=== PATIENT | female | born 1970 | race Caucasian/White ===

== ENCOUNTER 2017-02-28 02:53 | Emergency (ER) | payer OTHER ==
[~2017-02-28] VITALS: Ht 157.5 cm; Wt 81.5 kg
[2017-02-28 03:25] LABS: BASOPHILS # (AUTO) 0.05 K/uL (0.00-0.20); BASOPHILS % (AUTO) 0.3 % (0.0-2.0); EOSINOPHILS # (AUTO) 0.17 K/uL (0.00-0.70); EOSINOPHILS % (AUTO) 1.23 % (1.0-6.0); HEMATOCRIT 43.6 % (36-46); HEMOGLOBIN 14.4 g/dL (12.0-16.0); LYMPHOCYTES # (AUTO) 3.1 K/uL (1.0-4.8); LYMPHOCYTES % (AUTO) 21.5 % (22.0-44.0); MEAN CORPUSCULAR HEMOGLOBIN 28.9 pg (26.0-34.0); MEAN CORPUSCULAR VOLUME 87 fL (80-100); MONOCYTES # (AUTO) 0.7 K/uL (0.1-1.0); MONOCYTES % (AUTO) 4.8 % (2.0-9.0); NEUTROPHILS # (AUTO) 10.2 K/uL (1.8-7.7); NEUTROPHILS % (AUTO) 72.1 % (40.0-70.0); PLATELET COUNT (AUTO) 320 K/uL (150-450); RED BLOOD CELL COUNT(AUTO) 4.99 MIL/uL (4.00-5.20); RED CELL DISTRIBUTION WIDTH 14.5 % (11.5-14.5); WHITE BLOOD COUNT (AUTO) 14.2 K/uL (4.5-11.0)
[2017-02-28 03:47] LABS: ADD UA MICROSCOPIC YES; APPEARANCE,URINE CLEAR (CLEAR); GLUCOSE, URINE (UA) NEGATIVE (NEGATIVE); KETONES,URINE TRACE mg/dL (NEGATIVE); LEUKOCYTE ESTERASE ,URINE SMALL (NEGATIVE); OCCULT BLOOD,URINE TRACE (NEGATIVE); PH,URINE 5.5 (5.0-8.0); PROTEIN,URINE TRACE (NEGATIVE)
[2017-02-28 04:01] LABS: SQUAMOUS EPITHELIAL CELL,UR Few /LPF (None Seen)
[2017-02-28 04:41] LABS: ANION GAP 11 mmol/L (8-16); CALCIUM, TOTAL 8.7 mg/dL (8.8-10.5); CARBON DIOXIDE 27 mmol/L (22-29); CHLORIDE 104 mmol/L (98-107); CREATININE 0.77 mg/dL (0.60-1.30); GLOMERULAR FILTR. RATE CALC > 60 mL/min (>60); POTASSIUM 4.2 mmol/L (3.5-5.1); SODIUM SERUM 142 mmol/L (136-145); UREA NITROGEN, BLOOD 11 mg/dL (7-18)
[2017-02-28 04:47] LABS: ALANINE AMINOTRANSFERASE 20 U/L (12-78); ALBUMIN 3.8 g/dL (3.4-5.0); ASPARTATE AMINOTRANSFERASE 18 U/L (15-37); BILIRUBIN,TOTAL 0.3 mg/dL (0.1-1.0); TOTAL PROTEIN, SERUM 8.3 g/dL (6.4-8.2)
[2017-02-28 06:14] VITALS: BP 136/89
== END 2017-02-28 06:15 | disposition home or self-care (01) ==
LOC: EMS 02:54
DX: M54.5 Low back pain (principal); R31.29 Other microscopic hematuria; J44.9 Chronic obstructive pulmonary disease, unspecified; F17.210 Nicotine dependence, cigarettes, uncomplicated
CPT/HCPCS: 74176; 99285

== ENCOUNTER 2017-05-10 00:30 | Emergency (ER) | payer OTHER ==
[~2017-05-10] VITALS: Ht 157.5 cm; Wt 109.1 kg
[2017-05-10 02:36] VITALS: BP 139/77
[2017-05-10] MEDS ORDERED: ACYCLOVIR 200 MG CAPSULE PO ONE (02:45)
[2017-05-10] MEDS ORDERED: PredniSONE 20 MG TABLET PO ONE (02:45)
== END 2017-05-10 03:09 | disposition home or self-care (01) ==
LOC: EMS 00:39
DX: B02.9 Zoster without complications (principal); J44.9 Chronic obstructive pulmonary disease, unspecified; F17.210 Nicotine dependence, cigarettes, uncomplicated
CPT/HCPCS: 99283; J7512

== ENCOUNTER 2017-06-28 01:12 | Emergency (ER) | payer OTHER ==
[~2017-06-28] VITALS: Ht 154.9 cm; Wt 109.1 kg
[2017-06-28 01:28] LABS: GLUCOSE,POINT OF CARE 105 MG/DL (70-110)
[2017-06-28] MEDS: IBUPROFEN 600 MG TABLET PO ONE (03:15)
[2017-06-28 03:16] VITALS: BP 134/85
[2017-06-28] MEDS: HYDROCODONE/ACETAMINOPHEN 5-325 MG TABLET PO ONE (03:16)
== END 2017-06-28 03:20 | disposition home or self-care (01) ==
LOC: EMS 01:12
DX: J02.9 Acute pharyngitis, unspecified (principal); J44.9 Chronic obstructive pulmonary disease, unspecified; F17.210 Nicotine dependence, cigarettes, uncomplicated
CPT/HCPCS: 82962; 99283; 99406

== ENCOUNTER 2020-11-15 18:33 | Emergency (ER) | payer OTHER ==
[~2020-11-15] VITALS: Ht 154.9 cm; Wt 109.1 kg
[2020-11-15] MEDS ORDERED: FLUORESCEIN SODIUM 1 MG STRIP ONE (19:15)
[2020-11-15] MEDS ORDERED: PROPARACAINE HCL 0.5% 15 ML OPHTHALMIC SOLUTION OD ONE (19:15)
[2020-11-15 20:01] VITALS: BP 132/72
== END 2020-11-15 20:03 | disposition home or self-care (01) ==
LOC: EMS 18:39
DX: B02.9 Zoster without complications (principal); J44.9 Chronic obstructive pulmonary disease, unspecified; F17.210 Nicotine dependence, cigarettes, uncomplicated; F12.90 Cannabis use, unspecified, uncomplicated
CPT/HCPCS: 99283

== ENCOUNTER 2020-12-02 17:53 | Emergency (ER) | payer OTHER ==
[~2020-12-02] VITALS: Ht 160 cm; Wt 100.0 kg
[2020-12-02] MEDS ORDERED: KETOROLAC TROMETHAMINE 30 MG/ML VIAL IM ONE (18:45)
[2020-12-02 19:28] VITALS: BP 118/79
== END 2020-12-02 20:10 | disposition left against medical advice (07) ==
LOC: EMS 17:59
DX: M54.2 Cervicalgia (principal); M25.521 Pain in right elbow; M25.561 Pain in right knee; M25.562 Pain in left knee; J44.9 Chronic obstructive pulmonary disease, unspecified; F17.210 Nicotine dependence, cigarettes, uncomplicated; F12.90 Cannabis use, unspecified, uncomplicated; V43.62XA Car passenger injured in collision with other type car in traffic accident, initial encounter; Y93.89 Activity, other specified; Y92.488 Other paved roadways as the place of occurrence of the external cause; Y99.8 Other external cause status
CPT/HCPCS: 72040; 73080; 73562; 96372; 99284; J1885

== ENCOUNTER 2021-02-18 21:14 | Emergency (ER) | payer OTHER ==
[~2021-02-18] VITALS: Ht 157.5 cm; Wt 109.1 kg
[2021-02-18 22:15] VITALS: BP 142/90
[2021-02-18] MEDS ORDERED: AMOX TR/POT CLAV 875 MG/125 MG TABLET PO ONE (22:15)
[2021-02-18] MEDS ORDERED: ACETAMINOPHEN 325 MG TABLET PO ONE (22:15)
== END 2021-02-18 21:45 | disposition home or self-care (01) ==
LOC: EMS 21:23
DX: L03.113 Cellulitis of right upper limb (principal); J44.9 Chronic obstructive pulmonary disease, unspecified; F12.90 Cannabis use, unspecified, uncomplicated; F17.210 Nicotine dependence, cigarettes, uncomplicated
CPT/HCPCS: 99283

== ENCOUNTER 2022-06-04 18:07 | Emergency (ER) | payer OTHER ==
[~2022-06-04] VITALS: Ht 154.9 cm; Wt 109.1 kg
[2022-06-04 21:00] VITALS: BP 135/65
== END 2022-06-05 00:05 | disposition home or self-care (01) ==
LOC: EMS 18:07
DX: R51.9 Headache, unspecified (principal); J44.9 Chronic obstructive pulmonary disease, unspecified; F17.210 Nicotine dependence, cigarettes, uncomplicated; F12.90 Cannabis use, unspecified, uncomplicated; F10.90 Alcohol use, unspecified, uncomplicated; Z98.51 Tubal ligation status; Z98.890 Other specified postprocedural states
CPT/HCPCS: 70450; 99284

== ENCOUNTER 2022-11-02 | Emergency (ER) | payer OTHER ==
[~2022-11-02] VITALS: Ht 154.9 cm; Wt 109.1 kg
[2022-11-02 00:16] VITALS: BP 127/69
[2022-11-02] MEDS ORDERED: LIDOCAINE/PF 1% 2 ML VIAL IM ONE (02:30)
[2022-11-02] MEDS ORDERED: DOXYCYCLINE HYCLATE 100 MG TABLET PO ONE (02:30)
[2022-11-02] MEDS ORDERED: CefTRIAXone SODIUM 1 GM/VIAL IM ONE (02:30)
[2022-11-02] MEDS ORDERED: GENTAMICIN SULFATE 0.3% OPHTHALMIC SOLUTION 5 ML OD ONE (02:30)
== END 2022-11-02 02:57 | disposition home or self-care (01) ==
LOC: EMS 00:01
DX: H05.011 Cellulitis of right orbit (principal); H10.9 Unspecified conjunctivitis; B02.9 Zoster without complications; J44.9 Chronic obstructive pulmonary disease, unspecified; F17.210 Nicotine dependence, cigarettes, uncomplicated; F12.90 Cannabis use, unspecified, uncomplicated
CPT/HCPCS: 99283; 96372; J0696; J3490

== ENCOUNTER 2024-10-16 16:22 | Inpatient (IN) | payer OTHER ==
[~2024-10-16] VITALS: Ht 157.5 cm; Wt 113.0 kg
[2024-10-16] VITALS (8 sets, daily range): BP systolic 101–143; BP diastolic 42–90; PULSE 80–99; RESP 18–21; TEMP 98–98.7
[2024-10-16 16:55] LABS: MEAN CORPUSCULAR HEMOGLOBIN 15.6 pg (26.0-34.0); MEAN CORPUSCULAR HGB CONC 27.5 G/dL (31.0-37.0); MEAN CORPUSCULAR VOLUME 57 fL (80-100); PLATELET COUNT (AUTO) 453 K/uL (150-450); RED CELL DISTRIBUTION WIDTH 23.2 % (11.5-14.5); WHITE BLOOD COUNT (AUTO) 8.5 K/uL (4.5-11.0)
[2024-10-16 17:04] LABS: ANION GAP 9 mmol/L (8-16); CALCIUM, TOTAL 8.1 mg/dL (8.8-10.5); CARBON DIOXIDE 28 mmol/L (22-29); CHLORIDE 105 mmol/L (98-107); CREATININE 0.76 mg/dL (0.60-1.30); GLOMERULAR FILTR. RATE CALC > 60 mL/min (>60); GLUCOSE,RANDOM 97 mg/dL (70-110); POTASSIUM 3.8 mmol/L (3.5-5.1); SODIUM SERUM 142 mmol/L (136-145); UREA NITROGEN, BLOOD 8 mg/dL (7-18)
[2024-10-16 17:11] LABS: HEMATOCRIT 20.9 % (36-46); HEMOGLOBIN 5.8 g/dL (12.0-16.0)
[2024-10-16 17:40] LABS: BAND NEUTROPHILS % (MANUAL) 3 % (0-5); LYMPHOCYTES % (MANUAL) 25 % (22-44); MONOCYTES % (MANUAL) 7 % (2-9); SEGMENTED NEUTROPHILS % 65 % (40-70); TOTAL CELLS COUNTED 100
[2024-10-16 17:42] LABS: RBC MORPHOLOGY COMMENT ABNORMAL R
[2024-10-16 17:54] LABS: PROTHROMBIN TIME 10.8 SEC (9.4-11.6)
[2024-10-16] MEDS ORDERED: IOHEXOL 350 MG/ML 100 ML VIAL ONE (18:23)
[2024-10-16] MEDS ORDERED: 0.9% SODIUM CHLORIDE 10 ML SYRINGE IVP ONE (18:23)
[2024-10-16] MEDS ORDERED: SODIUM CHLORIDE 0.9% 100 ML ONE (18:23)
[2024-10-16 18:43] LABS: ALBUMIN 2.9 g/dL (3.4-5.0); BILIRUBIN,DIRECT 0.1 mg/dL (0.00-0.20); BILIRUBIN,TOTAL 0.3 mg/dL (0.1-1.0); TOTAL PROTEIN, SERUM 6.6 g/dL (6.4-8.2)
[2024-10-16] MEDS ORDERED: MAGNESIUM HYDROXIDE SUSPENSION 30 ML UDCUP PO PRN (22:15)
[2024-10-16] MEDS ORDERED: IPRATROPIUM BROMIDE 0.5 MG/2.5 ML NEB SOLUTION NEB PRN (22:15)
[2024-10-16] MEDS ORDERED: ACETAMINOPHEN 325 MG TABLET PO PRN (22:15)
[2024-10-16] MEDS ORDERED: ONDANSETRON HCL 4 MG/2 ML VIAL IVP PRN (22:15)
[2024-10-16] MEDS ORDERED: BISACODYL 10 MG RECTAL RECTAL SUPPOSITORY PR PRN (22:15)
[2024-10-16] MEDS ORDERED: MORPHINE SULFATE 2 MG/ML SYRINGE IVP PRN (22:15)
[2024-10-16] MEDS ORDERED: HYDROCODONE/ACETAMINOPHEN 5-325 MG TABLET PO PRN (22:15)
[2024-10-16] MEDS ORDERED: ALBUTEROL SULFATE 2.5 MG/0.5 ML NEB SOLUTION NEB PRN (22:15)
[2024-10-16] MEDS ORDERED: ZOLPIDEM TARTRATE 5 MG TABLET PO PRN (22:15)
[2024-10-17] VITALS (15 sets, daily range): BP systolic 111–141; BP diastolic 50–71; PULSE 72–91; RESP 16–20; TEMP 97.9–98.6; O2SAT 98–100
[2024-10-17] MEDS ORDERED: SODIUM CHLORIDE 0.9% 500 ML IV ONE (00:21)
[2024-10-17] MEDS: DEXTROSE 5%-0.45% SODIUM CHL 1,000 ML IV SCH (04:56)
[2024-10-17 07:47] LABS: HEMATOCRIT 26.8 % (36-46); HEMOGLOBIN 8.2 g/dL (12.0-16.0)
[2024-10-17] MEDS: PANTOPRAZOLE SODIUM 40 MG/VIAL IVP SCH (08:37)
[2024-10-17] MEDS: PEG 3350/NA SULF,BICARB,CL/KCL 4000 ML SOLUTION PO ONE (15:11)
[2024-10-18 00:03] VITALS: BP 117/53; PULSE 83; RESP 20; TEMP 98.6; O2SAT 98
[2024-10-18 04:25] VITALS: BP 119/54; PULSE 90; RESP 18; TEMP 99.5; O2SAT 98
[2024-10-18] MEDS ORDERED: SODIUM CHLORIDE 0.9% 1,000 ML ONE (06:05)
[2024-10-18] MEDS ORDERED: PROPOFOL 1% 20 ML VIAL IVP ONE (06:53)
[2024-10-18] MEDS ORDERED: NALOXONE HCL 0.4 MG/ML VIAL ONE (06:59)
[2024-10-18] MEDS ORDERED: ATROPINE SULFATE 0.1 MG/ML 10 ML SYRINGE IVP ONE (06:59)
[2024-10-18] MEDS ORDERED: DiphenhydrAMINE HCL 50 MG/ML VIAL ONE (06:59)
[2024-10-18] MEDS ORDERED: EPINEPHrine 1:10,000 [1 MG/10 ML] SYRINGE ONE (06:59)
[2024-10-18] MEDS ORDERED: FLUMAZENIL 0.1 MG/ML 5 ML VIAL IVP ONE (06:59)
[2024-10-18] MEDS ORDERED: SODIUM TETRADECYL SULFATE 3% 60 MG/2 ML VIAL IVP ONE (06:59)
[2024-10-18] MEDS ORDERED: FentaNYL CITRATE PF 100 MCG/2 ML VIAL ONE (07:00)
[2024-10-18] MEDS ORDERED: MIDAZOLAM HCL 2 MG/2 ML VIAL ONE (07:00)
[2024-10-18 07:52] VITALS: BP 138/62; PULSE 83; RESP 18; TEMP 98.8; O2SAT 100
[2024-10-18] MEDS: HYDROCORTISONE 2.5% 30 GM CREAM TP SCH (08:47)
[2024-10-18 11:24] VITALS: BP 114/69; PULSE 83; RESP 18; TEMP 98.6; O2SAT 96
[2024-10-18] MEDS ORDERED: HYDR25SU38 PR (12:21)
== END 2024-10-18 14:40 | disposition home or self-care (01) | DRG 244 ==
LOC: EMS 16:22 → EDH 22:02 → 5S 23:13
PROVIDERS: ADMIT Hospitalist; ATTEND Hospitalist
PROC: 30233N1 Transfusion of Nonautologous Red Blood Cells into Peripheral Vein, Percutaneous Approach (ICD-10-PCS; 2024-10-16)
PROC: 0DJD8ZZ Inspection of Lower Intestinal Tract, Via Natural or Artificial Opening Endoscopic (ICD-10-PCS; principal; 2024-10-18 07:00)
DX: K57.31 Diverticulosis of large intestine without perforation or abscess with bleeding (principal); E46 Unspecified protein-calorie malnutrition; D50.0 Iron deficiency anemia secondary to blood loss (chronic); E66.9 Obesity, unspecified; F17.210 Nicotine dependence, cigarettes, uncomplicated; K64.1 Second degree hemorrhoids; Z68.42 Body mass index [BMI] 45.0-49.9, adult
CPT/HCPCS: 74177; 80048; 80076; 82271; 85014; 85018; 85025; 85610; 85730; 86850; 86900; 86901; 86923; 93005; 99291; J0171; J0461; J1200; J2250; J2310; J2470; J2704; J3010; J3490; J7030; J7040; J7050; P9016

== ENCOUNTER 2025-04-29 12:43 | Emergency (ER) | payer OTHER ==
[~2025-04-29] VITALS: Ht 157.5 cm; Wt 99.0 kg
[~2025-04-29 12:43] MED LIST: HYDR25SU38 PR
[2025-04-29 13:20] VITALS: BP 118/59; PULSE 75; RESP 18; TEMP 98.1; O2SAT 98
[2025-04-29 13:39] LABS: PLATELET COUNT (AUTO) 300 K/uL (150-450); RED BLOOD CELL COUNT(AUTO) 5.20 MIL/uL (4.00-5.20); RED CELL DISTRIBUTION WIDTH 15.3 % (11.5-14.5); WHITE BLOOD COUNT (AUTO) 9.3 K/uL (4.5-11.0)
[2025-04-29 13:47] LABS: CALCIUM, TOTAL 8.7 mg/dL (8.8-10.5); CREATININE 0.72 mg/dL (0.60-1.30); GLOMERULAR FILTR. RATE CALC > 60 mL/min (>60); GLUCOSE,RANDOM 114 mg/dL (70-110); SODIUM SERUM 142 mmol/L (136-145); UREA NITROGEN, BLOOD 8 mg/dL (7-18)
[2025-04-29 14:27] LABS: TROPONIN I-HIGH SENSITIVITY 4 ng/L (<51)
== END 2025-04-29 15:35 | disposition home or self-care (01) ==
LOC: EMS 12:45
DX: R42 Dizziness and giddiness (principal); R53.83 Other fatigue; F12.90 Cannabis use, unspecified, uncomplicated; F17.210 Nicotine dependence, cigarettes, uncomplicated; Z98.51 Tubal ligation status; Z79.899 Other long term (current) drug therapy
CPT/HCPCS: 80048; 84484; 85025; 93005; 99284